=== PATIENT | male | born 1975 | race Two or more races ===

== ENCOUNTER 2019-05-20 19:39 | Emergency (ER) | payer SELFPAY ==
[~2019-05-20] VITALS: Ht 177.8 cm; Wt 130.2 kg
[2019-05-20 21:58] VITALS: BP 140/82
== END 2019-05-20 22:25 | disposition home or self-care (01) ==
LOC: ER 19:39
DX: M54.9 Dorsalgia, unspecified (principal); M25.511 Pain in right shoulder; V79.40XA Driver of bus injured in collision with unspecified motor vehicles in traffic accident, initial encounter; Y93.89 Activity, other specified; Y99.8 Other external cause status; Y92.410 Unspecified street and highway as the place of occurrence of the external cause
CPT/HCPCS: 72040; 73030; 73502